=== PATIENT | female | born 1970 | race Caucasian/White ===

== ENCOUNTER 2018-12-25 09:48 | Emergency (ER) | payer OTHER ==
[~2018-12-25] VITALS: Ht 162.5 cm; Wt 90.7 kg
[~2018-12-25 09:48] MED LIST: CORDROL20 MG PO; DAYPRO600 M1 PO; DIFLUCAN150 MG PO; INDOCIN50 MG PO; KEFLEX500 MG PO; MEDROL DOSEPAK4 MG PO; NAPROSYN500 MG PO; NASONEX0.05 MG/AC NAS; PREVACID30 M3 PO; PROAIR HFA0.09 MG/AC IH; ROBITUSSIN AC 10 MG/ PO; VICODIN 5/500 505 MG PO; XANAX0.25 MG PO; ZOFRAN ODT4 MG SL; ZYRTEC10 MG PO
[2018-12-25] MEDS ORDERED: PAXIL20 M1 PO (09:51)
[2018-12-25] MEDS ORDERED: MOBIC7.5 MG PO (11:54)
[2018-12-26] MEDS ORDERED: PREDNISONE50 MG PO (05:04)
== END 2018-12-25 11:57 | disposition home or self-care (01) ==
LOC: ED 09:48
DX: M77.9 Enthesopathy, unspecified (principal); M25.532 Pain in left wrist; Z79.899 Other long term (current) drug therapy

== ENCOUNTER 2018-12-26 04:44 | Emergency (ER) | payer OTHER ==
[~2018-12-26 04:44] MED LIST changes: +MOBIC7.5 MG PO; +PAXIL20 M1 PO
[2018-12-26] MEDS ORDERED: PREDNISONE50 MG PO (05:04)
== END 2018-12-26 05:23 | disposition home or self-care (01) ==
LOC: ED 04:44
DX: M77.8 Other enthesopathies, not elsewhere classified (principal); M25.532 Pain in left wrist; Z79.899 Other long term (current) drug therapy

== ENCOUNTER 2019-09-30 16:31 | Emergency (ER) | payer OTHER ==
[~2019-09-30] VITALS: Ht 160 cm; Wt 86.2 kg
[~2019-09-30 16:31] MED LIST changes: +PREDNISONE50 MG PO
[2019-09-30] MEDS ORDERED: ROBAXIN-750750 MG PO (17:06)
[2019-09-30] MEDS ORDERED: IBUPROFEN600 MG PO (17:06)
== END 2019-09-30 17:31 | disposition home or self-care (01) ==
LOC: ED 16:31
DX: M43.6 Torticollis (principal); K21.9 Gastro-esophageal reflux disease without esophagitis; Z79.899 Other long term (current) drug therapy

== ENCOUNTER → 2020-09-20 | Outpatient (CLI) | payer OTHER ==
[~2020-09-20] MED LIST changes: +IBUPROFEN600 MG PO; +ROBAXIN-750750 MG PO
[2020-09-20 08:59] LABS: BASO % 0.5 % (0.0-1.0); EOS # 0.3 10*3/uL (0.0-0.4); EOS % 3.5 % (1.0-4.0); HEMATOCRIT 38.9 % (37.0-47.0); LYMPH % 23.2 % (27.0-41.0); MEAN CELL VOLUME 83.5 fl (81.0-99.0); MEAN CORPUSCULAR HGB 26.6 pg (27.0-31.0); MEAN CORPUSCULAR HGB CONC 31.9 g/dl (33.0-37.0); MEAN PLATELET VOLUME 12.7 fl (9.6-12.3); MONO # 0.7 10*3/uL (0.1-1.0); MONO % 8.3 % (3.0-9.0); NEUT # 5.5 10*3/uL (2.3-7.9); NEUT % 64.4 % (47.0-73.0); PLATELET COUNT AUTOMATED 267 10*3/uL (130-400); RED BLOOD COUNT 4.66 10*6/uL (4.10-5.10); WHITE BLOOD COUNT 8.6 10*3/uL (4.8-10.8)
[2020-09-20 09:30] LABS: ALBUMIN 3.5 gm/dl (3.1-4.5); BUN 9 mg/dl (7-24); CHLORIDE 109 mmol/L (98-107); CHOLESTEROL 206 mg/dL (<200); CREATININE 0.62 mg/dL (0.55-1.02); POTASSIUM 4.1 mmol/L (3.5-5.1); SGOT/AST 9 IU/L (3-35); SGPT/ALT 14 U/L (12-78); SODIUM 140 mmol/L (136-145); TRIGLYCERIDES 125 mg/dl (<150); VLDL CHOLESTEROL 25 mg/dL (6-40)
[2020-09-20 09:32] LABS: ALKALINE PHOSPHATASE 97 U/L (45-117); HDL CHOLESTEROL 65 mg/dl (40-60); LDL CHOLESTEROL 116 mg/dL (9-159)
== END | disposition home or self-care (01) ==
LOC: LAB 08:21
PROVIDERS: ATTEND Family Medicine
DX: Z00.00 Encounter for general adult medical examination without abnormal findings (principal); F41.9 Anxiety disorder, unspecified; Z13.220 Encounter for screening for lipoid disorders

== ENCOUNTER → 2020-10-05 | Outpatient (CLI) | payer OTHER | END | disposition home or self-care (01) | LOC: COVID19 15:10 | PROVIDERS: ATTEND Family Medicine | DX: U07.1 COVID-19 (principal) ==

== ENCOUNTER → 2020-10-15 | Outpatient (CLI) | payer OTHER | END | disposition home or self-care (01) | LOC: COVID19 11:04 | PROVIDERS: ATTEND Family Medicine | DX: U07.1 COVID-19 (principal) ==

== ENCOUNTER → 2025-06-09 | Outpatient (CLI) | payer OTHER | END | disposition home or self-care (01) | LOC: RAD 11:46 | PROVIDERS: ATTEND Nurse Practitioner Family | DX: M18.12 Unilateral primary osteoarthritis of first carpometacarpal joint, left hand (principal); M25.532 Pain in left wrist ==